=== PATIENT | male | born 1985 | race Caucasian/White ===

== ENCOUNTER 2016-07-27 07:22 | Emergency (ER) | payer OTHER ==
[~2016-07-27] VITALS: Ht 172.7 cm; Wt 131.5 kg
[~2016-07-27 07:22] MED LIST: COUMADIN 5 MG TA5 M1; CYMBALTA30 MG; FLEXERIL PO; LYRICA 75 MG CA75 MG PO; LYRICA100 MG PO; MS CONTIN 30 MG30 M1; NEURONTIN 300300 M1; OXYCODONE HCL 55 MG PO; OXYCODONE HCL E20 MG PO; OXYCONTIN20 M1 PO; PEPCID20 MG PO; PERCOCET 10-321 EACH PO; STOOL SOFTENER100 MG PO; VALIUM5 MG PO; XANAX1 MG PO; ZOLOFT50 MG PO
[2016-07-27 08:19] LABS: ABSOLUTE NEUTROPHILS 10.3 thou/uL (1.4-8.2); BASOPHILS 0.5 % (0.0-2.0); EOSINOPHILS 1.1 % (0.0-3.0); HEMATOCRIT 47.2 % (42.0-52.0); HEMOGLOBIN 15.5 gm/dL (14.0-18.0); LYMPHOCYTES 13.5 % (24.0-44.0); MCHC 32.9 % (28.0-37.0); MONOCYTES 3.4 % (1.0-8.0); PLATELET COUNT 206 thou/uL (150-400); POLYS 81.5 % (36.0-66.0); RBC 5.75 mil/uL (4.50-6.00); WBC 12.6 thou/uL (4.0-11.0)
[2016-07-27 08:20] LABS: CALCIUM 9.7 mg/dL (8.5-10.1); POTASSIUM 4.5 mmol/L (3.5-5.1)
[2016-07-27 08:23] LABS: MANUAL DIFF NO
[2016-07-27 08:48] LABS: URINE BILIRUBIN NEGATIVE (Negative); URINE BLOOD NEGATIVE (Negative); URINE COLOR YELLOW; URINE GLUCOSE-RANDOM* NEGATIVE (Negative); URINE KETONES NEGATIVE (Negative); URINE NITRITE NEGATIVE (Negative); URINE PROTEIN (DIPSTICK) NEGATIVE (Negative); URINE SPECIFIC GRAVITY 1.025 (1.003-1.035); URINE UROBILINOGEN 0.2 E.U./dl (0.2-1.0)
[2016-07-27] MEDS ORDERED: KEFLEX500 MG PO (10:47)
== END 2016-07-27 11:06 | disposition home or self-care (01) ==
LOC: ER 07:22
PROVIDERS: Emergency Medicine
DX: R10.9 Unspecified abdominal pain (principal); K21.9 Gastro-esophageal reflux disease without esophagitis; F32.9 Major depressive disorder, single episode, unspecified; F41.9 Anxiety disorder, unspecified; Z86.718 Personal history of other venous thrombosis and embolism; Z87.442 Personal history of urinary calculi; Z87.891 Personal history of nicotine dependence

== ENCOUNTER → 2020-11-26 | Outpatient (CLI) | payer OTHER ==
[~2020-11-26] VITALS: Ht 172.7 cm; Wt 79.4 kg
[~2020-11-26] MED LIST changes: +DULOXETINE HCL60 MG PO; +KEFLEX500 MG PO; +PRAVACHOL 20 MG20 M1 PO; +PROTONIX40 M2 PO
--- NOTE | ~2020-11-26 | HPC ---
[facility] [address] [address] PAIN MANAGEMENT CONSULTATION Name: ANGELINA SEGUNDO Room #: [facility] Evelina#: [id number] Admission: 11/26/20 Attend Phys: Gregory Harris DO Discharge: Date of : 81 Report #: [id number] THIS REPORT FOR: cc: Ko Zamora MD, Steven E. MD Johnson, James E. DO ~ DOC #: [id number] cc: MD Gregory Tobin, DATE OF SERVICE: 11/26/2020 CHIEF COMPLAINT: Phantom limb pain. HISTORY OF PRESENT ILLNESS: As you know, the patient is a pleasant 35-year-old male who reports longstanding history of left lower extremity phantom limb pain that began on November 07, 2011. The patient was involved in an accident that left him with amputation of the left leg. He spent a month in rehabilitation in [place] where he was placed on [place] Contin up to 3 times a day. He returned to the [place] area and apparently his medications were rotated to OxyContin 20 mg twice a day and utilization of Percocet 10/325 three times a day for pain control. He also underwent spinal cord stimulator trial implantation, which apparently gave excellent benefit and the patient went on to permanent implant. He was followed by pain management for a time. Stabilized on his dosing of medications along with the spinal cord stimulator and discharged back to the primary care team. The patient sought further evaluation with his primary care physician recently and was advised they would like to have a second opinion of the treatment options he has available and the patient was referred to our clinic for a second opinion. The patient reports that the combination of OxyContin 20 mg b.i.d. along with oxycodone is working well for pain control. Despite the fact that he is placing pain score at 6/10, he states he is able to function on a daily basis and continue activities. He is taking a high dose benzodiazepine along with the opioid medication as being all provided through his primary care physician. He states that medication "calms him" throughout the day. He has been referred to our service to discuss our opinion on treatment and whether or not adjustments would be recommended. The patient reports today, his pain is constant. Describes the pain as burning, shooting, crushing, throbbing, sharp and stabbing, numbness and tingling. He places current pain score at 6/10 daily average anywhere from 2-6/10, worst pain has been is 10+/10. The patient states that long-term sitting and constant use of his prosthetic exacerbates his left stump pain and phantom limb symptoms. He states that lying on his side, medications tend to improve pain. He has been referred to our service to discuss our opinions and suggestions for continued treatment. PAST MEDICAL HISTORY: [facility] [address] [place] [address] PAIN MANAGEMENT CONSULTATION Name: ANGELINA SEGUNDO Room #: [facility] Evelina#: [id number] Admission: 11/26/20 Attend Phys: Gregory Harris DO Discharge: Date of : 81 Report #: [id number] 1. Hypertension. 2. Peptic ulcer disease. 3. Phantom limb pain. 4. Anxiety disorder. PAST SURGICAL HISTORY: 1. Amputation of the left lower extremity. 2. Gastric bypass. 3. Hernia and colon repair. 4. Stump revisions. SOCIAL HISTORY: The patient denies tobacco use. Denies IV or illicit drug use. Denies any chronic alcohol use. 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 He is working, not receiving workmen's compensation nor is he trying to obtain disability benefits. He is not in litigation in regard to pain. He is unaccompanied at today's visit. REVIEW OF SYSTEMS: Positive for decrease in appetite, weight change after gastric bypass, fatigue and weakness, frequent and recurrent headaches, hearing loss with tinnitus, loss of appetite, changes in bowel movements with intermittent constipation, rectal bleeding, chronic abdominal pain, nocturia, kidney stones, depression, anxiety disorder, bruising or bleeding tendencies, phantom limb pain and pain from prosthetic wear. All other review of systems negative per 12-point review of systems other than those listed in history of present illness. Pain impact score 48/70, severe interference of daily activities secondary to pain. ALLERGIES: No known drug allergies. CURRENT MEDICATIONS: Pantoprazole 40 mg once a day, Alprazolam 1 mg 3 times a day, oxycodone/acetaminophen 10/325 mg dose 1 tab p.o. t.i.d. p.r.n. pain, OxyContin 20 mg b.i.d., pregabalin 100 mg 3 times a day, duloxetine 60 mg 3 times a day, verapamil 80 mg 3 times a day, pravastatin 20 mg once a day. IMAGING: No imaging available. PQRS: The patient has left hip osteoarthritis, no rheumatoid arthritis. He is placing current pain score at 6/10. He is a fall risk, but has not had a fall in last 3 months. He uses crutches and prosthetic for balance. He is not on blood thinners, but is treated for hypertension. He is on chronic opioids and based on our assessment tool has a low opioid addiction potential. Pain impact is 48/70. Severe interference of daily activities secondary to pain. PHYSICAL EXAMINATION: [address] [place] [address] PAIN MANAGEMENT CONSULTATION Name: ANGELINA SEGUNDO Room #: [facility]#: [id number] Admission: 11/26/20 Attend Phys: Gregory Harris DO Discharge: Date of : 81 Report #: [id number] VITAL SIGNS: Blood pressure 160/69, pulse is 63, respiratory rate 14 and unlabored. The patient 100% on room air. Height 5 feet 8 inches tall, weight 175 pounds, BMI calculated 26.6. GENERAL: Well-developed, well-nourished, well-hydrated 35-year-old male. He appears his stated age. He is in no acute distress. Awake, alert and oriented x3. Current pain score is rated at 6/10. HEENT: Normocephalic, atraumatic. The patient speaks fluently. Extraocular muscles are intact. He is wearing a mask in compliance with COVID-19 regulations. LUNGS: Clear. No wheeze, rhonchi, no rales. CARDIOVASCULAR: Regular. No appreciable gallop, no rub. ABDOMEN: Soft, mildly obese, normoactive bowel sounds. EXTREMITIES: Show no clubbing, no cyanosis and no edema. MUSCULOSKELETAL: There are well-healed surgical scars from amputation of the left leg. There is no erythema or changes of the skin color at the stump site. Tactile sensation is symmetrical when comparing left anterior groin to the right posterior area. There does not appear to be any definitive neuropathic findings. ASSESSMENT: 1. Left leg amputation. 2. Phantom limb pain. 3. Opioid dependency. 4. Chronic intractable pain. PLAN: 1. Based on our physical exam today, the history the patient provides as well as the distribution of symptoms, it does fit with the patient's findings that he is suffering from phantom limb pain and prosthetic pain from extended wear of his prosthetics. He states he is doing well with OxyContin b.i.d. 20 mg along with oxycodone 10/325 three times a day. He is denying any side effects to the medications, states that they are working beneficially even though his pain score today is rated at 6/10. He has been referred to our clinic to offer suggestions and treatment that may not have been already entertained. Apparently, the patient has been trialled on neuropathics in the past including gabapentin and the current Lyrica that he is on. He is currently taking an anxiolytic/antidepressant in the form of Cymbalta at 60 mg 3 times a day and cannot be escalated further. The following was discussed with the patient and his treatment options and adjustments that we would recommend to help with his ongoing pain. We appreciate the opportunity to see the patient here today and we are hopeful the information follows will help direct the care of your patient. 2. In regard to the Lyrica, he is currently taking 300 mg per day. This could be escalated anywhere to 400-600 mg per day. This could be spread out over a t.i.d. dosing. We would recommend at this point an escalation by 50 mg 3 times a day to be added to his current dosing. This would equal to 450 mg total dose [address] [address] PAIN MANAGEMENT CONSULTATION Name: ANGELINA SEGUNDO Room #: REG [facility] Hoyt#: [id number] Admission: 11/26/20 Attend Phys: Gregory Harris DO Discharge: Date of : 81 Report #: [id number] per day. This might provide some analgesic benefit specifically from the neuropathic standpoint. We need to watch for side effects of somnolence, decreased mental acuity, disorientation, confusion with the use of that medication. This could be then again increased 1 more time to 600 mg, which would be the maximum dose. We would recommend this could also be done by titrating again by 50 mg tablet if he is not seeing good improvement with the Lyrica adjustment. 3. The patient indicates that he had experienced use with a mirror box while in rehabilitation in [place]. We recommend mirror box therapy for all patients with phantom limb sensation. It has shown to be quite effective, though it does take time. He would need to do that on a time a day basis, is where we have found the best efficacy. Recommend that patient be referred out for mirror box therapy training and then utilized the device at home. 4. We have found good effect with people with chronic neuropathic pain such as the patient with cognitive behavioral therapy. We would recommend a referral to the [facility] for that type of treatment option. He has been shown very effective for treating patients with neuropathic pain that is unresponsive to other treatment options. We recommend that referral if you would like to consider it. 5. If you are wanting to rotate the patient from OxyContin and oxycodone combination to a medication that would provide both analgesic benefit from a mu receptor agonist standpoint, but also add neuropathic component to treatment, would recommend either Nucynta or methadone. I would recommend the Nucynta at approximately 100 mg b.i.d. dose on extended release. This will provide good analgesic benefit and equate to the amount of OxyContin and oxycodone he is currently taking. The biggest problem with Nucynta is coverage from an insurance standpoint. He would likely have to obtain prior authorizations with that medication, though it could be quite effective. If you wish to consider another rotation of medication, methadone would be an excellent agent, either that is not only mu receptor agonist, but also NMDA receptor antagonist and a neuropathic component with norepinephrine reuptake inhibition. With this medication we would recommend if you consider starting at 5 mg t.i.d., which could be escalated to 7.5 mg t.i.d., I would not recommend any breakthrough pain medication with this medication, I would start at the 5 mg dose three times a day and then adjust only if necessary from a pain standpoint. 6. We have seen good analgesic benefit with opioid medication in combination with oral ketamine. This medication has to be compounded at a local pharmacy. We recommend a 10 mg per mL mixture in a simple syrup, then we would recommend 0.5 mL of ketamine 3 times a day or a total of 1.5 mL per day, which will work in conjunction with his opioids to improve analgesic therapy. Ketamine when taken orally is converted to norketamine, which actually has NMDA receptor antagonist effects working synergistically with opioids improving analgesic benefit. 7. We did discuss the possibility that the patient could look towards an intrathecal pump. We do not offer intrathecal pumps [place] [address] PAIN MANAGEMENT CONSULTATION Name: ANGELINA SEGUNDO Room #: REG [facility] Hoyt#: [id number] Admission: 11/26/20 Attend Phys: Gregory Harris DO Discharge: Date of : 81 Report #: [id number] discontinued the implantations about 5 years ago. The patient could seek evaluation for intrathecal pump as medications that could be provided through the pump and that cannot be done orally, may provide analgesic benefit including bupivacaine and clonidine. Referral would have to be made for the patient to be seen for intrathecal pump to a clinic that provides that option of care and are willing to take on the patient for his chronic symptoms. 8. Based on the physical exam today and the discussion I had with the patient, he appears to be doing well with the OxyContin. We have reviewed his PDMP. There it does not show any concerning aberrancies in the PDMP, it seems like he is filling the medication consistently and appropriately. At this point, I do not see a reason why you could not continue the patient on his current dosing of medication with possible adjustments in his neuropathic medications. He appears to be doing well and based on PDMP, it looks like he is an appropriate candidate to continue therapy. 9. We have provided the patient with information in regard to the local player services representative for [place] to adjust his spinal cord stimulator. I do feel that most of his symptoms are neuropathic in origin and can be improved with adjustments in his programming of his cord stimulator. I have given the names of the representatives in the area who can adjust this device. There will be a need to follow up in your clinic so that they can make dose adjustments with your patient. These adjustments usually take about a half hour time. They typically meet their patients at the physician's offices to make those adjustments based on the guidelines that they are given by their corporate entities. The patient will be contacting you about establishing an appointment with the player services representative at your clinic. 10. We wish to thank Dr. Zamora for the opportunity to see this patient in consultation. We are hopeful the information provided in this dictation will be helpful in helping you direct your patient's care. We very much appreciate the opportunity to see the patient here in consultation. We are hopeful the information will be of benefit to you and serving your patient further. DO BETO Sam/DUNIA By: [id number] Gregory Harris DO /roberto
[2020-11-26 10:47] VITALS: BP 116/69
--- NOTE | 2020-11-26 11:02 | NUR ---
Pain Clinic Assessment: 1. History of Osteoarthritis: LEFT HIP History of Rheumatoid Arthritis: Not Applicable 2. Height: 5 ft. 8 in. 172.7 cm. Weight: 175.0 lb. oz. 79.380 kg. Patient's BMI: 26.6 3. Vital Signs: BP: 116/69 Pulse: 63 Resp: 14 Temp: 02 Sat: 100 ECG Mon: 4. Pain Intensity: 6 5. Fall Risk: Dizziness: N Needs help standing or walking: Y Fallen in the last 3 months: N Fall risk comments: 6. Patient on Blood Thinner: None 7. History of Hypertension: Y 8. Opioid Therapy greater than 6 weeks: Y Opiate Contract Signed: 03/04/16 9. Risk Assessment Tool Provided: 2-LOW RISK 10. Functional Assessment Tool: 11. Recreational Drug Use: Current within past 3 mos Drug Type: MEDICAL MARIJUANA Tobacco Use: Never Smoker Tobacco Type: Amount or Packs/day: How Many Years: Alcohol Use: Yes Frequency: Monthly Quant:
== END ==
LOC: PAIN 09:58
PROVIDERS: ATTEND Anesthesiology Pain Medicine
DX: G54.6 Phantom limb syndrome with pain (principal); F11.20 Opioid dependence, uncomplicated; G89.29 Other chronic pain